=== PATIENT | female | born 1945 | race Caucasian/White ===

== ENCOUNTER → 2018-06-03 | Outpatient (CLI) | payer OTHER | LOC: M.ULTRA 09:00 | DX: D25.9 Leiomyoma of uterus, unspecified (principal); Z88.1 Allergy status to other antibiotic agents; Z88.5 Allergy status to narcotic agent; Z88.2 Allergy status to sulfonamides; Z88.8 Allergy status to other drugs, medicaments and biological substances ==

== ENCOUNTER → 2018-08-22 | Outpatient (CLI) | payer OTHER | LOC: M.ULTRA 08-19 12:56 | DX: D25.9 Leiomyoma of uterus, unspecified (principal); Z98.890 Other specified postprocedural states; Z87.19 Personal history of other diseases of the digestive system; Z88.1 Allergy status to other antibiotic agents; Z88.5 Allergy status to narcotic agent; Z88.8 Allergy status to other drugs, medicaments and biological substances; Z88.2 Allergy status to sulfonamides ==

== ENCOUNTER → 2018-09-05 | Outpatient (CLI) | payer OTHER | LOC: M.CT 15:31 | DX: J43.2 Centrilobular emphysema (principal); K45.8 Other specified abdominal hernia without obstruction or gangrene ==

== ENCOUNTER → 2019-12-31 | Outpatient (CLI) | payer MEDICARE | LOC: M.ULTRA 08:00 | PROVIDERS: ATTEND Registered Nurse Diabetes Educator | DX: E04.1 Nontoxic single thyroid nodule (principal); R22.0 Localized swelling, mass and lump, head; R22.1 Localized swelling, mass and lump, neck ==

== ENCOUNTER → 2020-01-08 | Outpatient (CLI) | payer MEDICARE | LOC: M.ULTRA 08:50 | PROVIDERS: ATTEND Registered Nurse Diabetes Educator | DX: E04.2 Nontoxic multinodular goiter (principal) ==